=== PATIENT | female | born 1970 | race Caucasian/White ===

== ENCOUNTER → 2020-05-23 | Outpatient (CLI) | payer OTHER ==
[2020-05-23 10:59] LABS: BILIRUBIN,URINE NEGATIVE (NEG); CLARITY,URINE CLEAR; COLOR,URINE YELLOW; NITRITE,URINE NEGATIVE (NEG); PH,URINE 6.5 (<5.0-8.0); PROTEIN,URINE NEGATIVE (NEG-TRACE); UROBILINOGEN,URINE 0.2 mg/dL (0.2 mg/dL)
[2020-05-23 11:03] LABS: BASO % 1 % (0-3); EOS # 0.1 x10^3/uL (0.0-0.7); EOS % 1 % (0-3); HEMATOCRIT 42.2 % (36.0-47.0); HEMOGLOBIN 14.5 g/dL (12.0-15.5); LYMPH # 2.1 x10^3/uL (1.0-4.8); LYMPH % 39 % (24-48); MEAN CORPUSCULAR HEMOGLOBIN 29 pg (25-35); MEAN CORPUSCULAR HGB CONC 34 g/dL (31-37); MEAN CORPUSCULAR VOLUME 85 fL (79-100); MONO # 0.3 x10^3/uL (0.0-1.1); MONO % 6 % (0-9); NEUT # 2.9 x10^3/uL (1.8-7.7); NEUT % 54 % (31-73); PLATELET COUNT 226 x10^3/uL (140-400); RED BLOOD COUNT 4.96 x10^6/uL (3.50-5.40); RED CELL DISTRIBUTION WIDTH 12.9 % (11.5-14.5); WHITE BLOOD COUNT 5.5 x10^3/uL (4.0-11.0)
[2020-05-23 11:26] LABS: ALBUMIN 4.1 g/dL (3.4-5.0); ALBUMIN/GLOBULIN RATIO 1.2 (1.0-1.7); CALCIUM 8.5 mg/dL (8.5-10.1); CREATININE 0.7 mg/dL (0.6-1.0); GFR 88.9; POTASSIUM 3.8 mmol/L (3.5-5.1); TOTAL BILIRUBIN 0.5 mg/dL (0.2-1.0); TOTAL PROTEIN 7.4 g/dL (6.4-8.2)
[2020-05-23 11:27] LABS: CHOLESTEROL/HDL RATIO 3.8
[2020-05-23 11:34] LABS: BACTERIA,URINE FEW /HPF (0-FEW); RBC,URINE 0 /HPF (0-2); SQUAMOUS EPITHELIAL CELL,UR FEW /LPF; WBC,URINE 0 /HPF (0-4)
[2020-05-23 11:35] LABS: FREE T4 0.81 ng/dL (0.76-1.46); THYROID STIM HORMONE (TSH) 6.551 uIU/mL (0.358-3.74)
[2020-05-24 00:09] LABS: FSH 69.1 mIU/mL (.); PROGESTERONE <0.1 ng/mL (.); T3 TOTAL 97 ng/dL (71-180); TESTOSTERONE TOTAL 5 ng/dL (8-48)
== END | disposition home or self-care (01) ==
LOC: LAB 10:13
PROVIDERS: ATTEND Family Medicine
DX: Z00.00 Encounter for general adult medical examination without abnormal findings (principal); R53.83 Other fatigue; E34.9 Endocrine disorder, unspecified; E03.9 Hypothyroidism, unspecified
CPT/HCPCS: 36415; 80053; 80061; 81001; 82306; 82607; 82670; 83001; 84144; 84403; 84439; 84443; 84480; 85025; 86803

== ENCOUNTER → 2020-06-07 | Outpatient (CLI) | payer OTHER ==
--- NOTE | 2020-06-07 16:50 | RAD ---
Ultrasound of the neck 06/07/2020 CLINICAL HISTORY: Bilateral neck pressure. TECHNIQUE: A real-time ultrasound examination of the neck in the area where the patient feels pressure was performed. Multiple images were obtained. FINDINGS: No abnormal soft tissue mass is seen. Normal appearing cervical lymph nodes are seen within the neck, right greater than left which measure 0.8 to 1.5 cm in greatest diameter. No cervical lymphadenopathy is seen. No abnormal fluid collection is noted. IMPRESSION: Normal-appearing lymph nodes are seen within the visualized neck. No abnormal soft tissue mass is seen. Electronically signed by: Delbert Verma MD (06/07/2020 4:47 PM) [id number]
--- NOTE | 2020-06-07 17:00 | RAD ---
Thyroid ultrasound 06/07/2020 CLINICAL HISTORY: Hypothyroidism. TECHNIQUE: A real-time ultrasound examination of the thyroid gland was performed. Multiple images were obtained. FINDINGS: The thyroid gland is mildly enlarged, left greater than right. The right lobe of the thyroid gland measures 3.5 x 1.3 x 1.3 cm in size. The left lobe of thyroid gland measures 4.2 x 2.1 x 1.9 cm in size. The isthmus measures 2 mm in thickness. Multiple rounded/oval-shaped isoechoic solid nodules are seen scattered throughout both lobes of the thyroid gland. They measure 3 mm to 2.8 cm in greatest diameter. The largest nodule is within the mid/inferior aspect of the left lobe of thyroid gland. The second largest nodule involves the medial aspect of the right lobe of the thyroid gland extending into the isthmus. It measures 1.1 cm in size. The two larger nodules are TI-RADS level 3: mildly suspicious. Due to the large size of the nodule within the left lobe of thyroid gland, ultrasound-guided FNA is recommended for further evaluation. IMPRESSION: Findings consistent with a multinodular goiter. A 2.8 cm solid nodule is seen within the left lobe of the thyroid gland. Further evaluation with ultrasound-guided FNA is recommended. Electronically signed by: Delbert Verma MD (06/07/2020 4:57 PM) [id number]
== END ==
LOC: US 12:45
PROVIDERS: ATTEND Nurse Practitioner Family
DX: E04.1 Nontoxic single thyroid nodule (principal); R59.0 Localized enlarged lymph nodes
CPT/HCPCS: 76536

== ENCOUNTER → 2020-07-08 | Outpatient (CLI) | payer OTHER ==
--- NOTE | 2020-07-08 15:23 | RAD ---
EXAM: ULTRASOUND-GUIDED THYROID FINE-NEEDLE ASPIRATION AND CORE NEEDLE BIOPSY. HISTORY: Dominant left Thyroid nodule. Ultrasound-guided biopsy is requested. FINDINGS: The procedure along with its risks and benefits were explained to the patient. They agreed to proceed. A timeout procedure was performed. Sonographic images of the thyroid gland were obtained. The solid target nodule in the mid left thyroid lobe was adequately visualized for biopsy. The overlying skin was sterilely prepped and infiltrated with 1% lidocaine for local anesthesia. Under ultrasound guidance, 4 aspirates were obtained using 25-gauge needles. These were hand delivered to pathology who determined them adequate for diagnosis. A single core needle biopsy sample was also obtained of the nodule using an 18-gauge Temno needle. This sample was placed in formalin and given to the electroencephalograph technologist. A sterile dressing was placed. There were no immediate complications. IMPRESSION: 1. Successful ultrasound-guided fine-needle aspiration and core biopsy of the dominant left thyroid nodule. Electronically signed by: Megan Hancock MD (07/08/2020 3:20 PM) [id number]
--- NOTE | 2020-07-09 13:08 | PATHOLOGY ---
Note [facility] Accession Number: [id number] TESTS RESULT FLAG UNITS REF RANGE LAB Clinician Provided Cytology Information No. of containers..01 Other (Miscellaneous) Source: LT THYROID DIAGNOSIS: LT THYROID INADEQUATE, INSUFFICIENT CELLS FOR STUDY. [place] CATEGORY I. UNSATISFACTORY. THIS INTERPRETATION INCLUDES EVALUATION OF A CELL BLOCK. Signed out by: Anthony Allen MD, Pathologist NPI- [id number] Performed by: Tim Travis, Chain Person ([facility]) Gross description: 01 30ML, RED, 1TP, 1CB /LCS 07/09/2020 0551 Local FLAG LEGEND: L-Low Normal,H-High Normal,LL-Alert Low,HH-Alert High <-Panic Low,>-Panic High,A-Abnormal,AA-Critical Abnormal Performed at: 01 [facility] [address] [place] [address] [address] [place] [address] Jose Segundo MD, [address] [address] Anthony Allen MD, Specimen Comment: A courtesy copy of this report has been sent to [phone], [phone] Specimen Comment: [id number] Specimen Comment: Report sent to DR MERINO,DR OKEEFE / DR LONGORIA Specimen Comment: A duplicate report has been generated due to demographic updates. Performed at: 01 [facility] [address], [place], [place] [id number] MD Jose Segundo MD Phone: [phone]
--- NOTE | 2020-07-10 15:07 | PATHOLOGY ---
[facility] Accession Number: [id number] . 01 Material submitted: . thyroid gland - LEFT THYROID NODULE 2.8CM CORE BX LEFT THYROID. Modifiers: left . 01 Clinical history: . LEFT THYROID NODULE . 02 Diagnosis: Thyroid tissue, left thyroid nodule core biopsy: - Thyroid follicular lesion. See comment. . (JPM:mml/katelynn; 07/10/2020) [facility] 07/10/2020 1355 Local . 02 Comment: Sections of the left thyroid nodule core biopsy reveal a segment of thyroid tissue, composed of thyroid follicles which vary mildly in size and focally contain colloid. The follicles are lined by thyroid follicular cells having regular rounded nuclei. There is recent hemorrhage within the stroma. There is no capsule present in the biopsy. The differential diagnosis includes adenomatous nodule and follicular neoplasm. There is no cytomorphological evidence of papillary carcinoma. Please correlate with fine needle aspiration specimen. . (JPM:mml/katelynn; 07/10/2020) . 02 Electronically signed: . Singh Baez MD, Pathologist NPI- [id number] . 01 Gross description: . The specimen is received in formalin, labeled "Abbieanless, Ileana, left thyroid" and consists of a delicate needle core of pink-ma tissue measuring 0.8 cm in length and 0.1 cm in diameter which is entirely submitted in A1. (SDY; 07/08/2020) SYU/SYU 07/08/2020 1641 Local . 02 Pathologist provided ICD-10: E04.1 . 02 CPT . 715768 Specimen Comment: A courtesy copy of this report has been sent to [phone] Specimen Comment: [id number] Specimen Comment: Report sent to ,DR OKEEFE / DR LONGORIA Performed at: [address] [facility] [address], [place], [place] [id number] MD Jose Segundo MD Phone: [phone] Performed at: 02 [facility] [address] [place], [place] [id number] MD Singh Baez MD Phone: [phone]
== END | disposition home or self-care (01) ==
LOC: US 08:36
PROVIDERS: ATTEND Nurse Practitioner Family
DX: E04.1 Nontoxic single thyroid nodule (principal)
CPT/HCPCS: 10005; 60300; 76942; 88173; 88305

== ENCOUNTER → 2020-08-02 | Outpatient (CLI) | payer OTHER ==
[2020-08-03 01:12] LABS: LUTEINIZING HORMONE 50.5 mIU/mL (.); TESTOSTERONE TOTAL <3 ng/dL (8-48)
== END ==
LOC: LAB 11:10
PROVIDERS: ATTEND Nurse Practitioner Family
DX: E34.9 Endocrine disorder, unspecified (principal)
CPT/HCPCS: 36415; 82306; 82607; 82626; 83001; 83002; 84403

== ENCOUNTER → 2020-08-02 | Outpatient (CLI) | payer OTHER ==
[2020-08-02 13:06] LABS: FREE T4 0.76 ng/dL (0.76-1.46); THYROID STIM HORMONE (TSH) 1.79 uIU/mL (0.358-3.74)
[2020-08-03 00:27] LABS: PROGESTERONE <0.1 ng/mL (.)
== END ==
LOC: LAB 11:04
PROVIDERS: ATTEND Otolaryngology Plastic Surgery within the Head & Neck
DX: E04.1 Nontoxic single thyroid nodule (principal)
CPT/HCPCS: 36415; 82533; 82672; 84144; 84439; 84443; 84481; 86141

== ENCOUNTER → 2020-10-14 | Outpatient (CLI) | payer OTHER ==
[2020-10-14 09:51] LABS: FREE T4 0.85 ng/dL (0.76-1.46); THYROID STIM HORMONE (TSH) 4.037 uIU/mL (0.358-3.74)
== END ==
LOC: LAB 08:37
PROVIDERS: ATTEND Otolaryngology Plastic Surgery within the Head & Neck
DX: E03.9 Hypothyroidism, unspecified (principal)
CPT/HCPCS: 36415; 84439; 84443; 84481

== ENCOUNTER → 2020-10-14 | Outpatient (CLI) | payer OTHER ==
[2020-10-14 09:34] LABS: BASO % 1 % (0-3); EOS % 1 % (0-3); HEMATOCRIT 44.9 % (36.0-47.0); HEMOGLOBIN 15.5 g/dL (12.0-15.5); LYMPH # 1.9 x10^3/uL (1.0-4.8); LYMPH % 33 % (24-48); MEAN CORPUSCULAR HEMOGLOBIN 29 pg (25-35); MEAN CORPUSCULAR HGB CONC 34 g/dL (31-37); MEAN CORPUSCULAR VOLUME 85 fL (79-100); MONO # 0.4 x10^3/uL (0.0-1.1); MONO % 7 % (0-9); NEUT # 3.5 x10^3/uL (1.8-7.7); NEUT % 59 % (31-73); PLATELET COUNT 248 x10^3/uL (140-400); RED CELL DISTRIBUTION WIDTH 13.4 % (11.5-14.5); WHITE BLOOD COUNT 5.9 x10^3/uL (4.0-11.0)
[2020-10-14 09:48] LABS: ALBUMIN 4.5 g/dL (3.4-5.0); ALBUMIN/GLOBULIN RATIO 1.6 (1.0-1.7); C-REACTIVE PROTEIN 0.8 mg/L (0-3.3); CALCIUM 9.1 mg/dL (8.5-10.1); CREATININE 0.8 mg/dL (0.6-1.0); GFR 76.2; POTASSIUM 4.4 mmol/L (3.5-5.1); TOTAL BILIRUBIN 0.9 mg/dL (0.2-1.0); TOTAL PROTEIN 7.3 g/dL (6.4-8.2)
[2020-10-14 09:54] LABS: CHOLESTEROL/HDL RATIO 4.6
[2020-10-14 19:09] LABS: FSH 32.2 mIU/mL (.)
[2020-10-14 21:09] LABS: ESTRADIOL LEVEL 82.9 pg/mL (.); PROGESTERONE 0.1 ng/mL (.)
[2020-10-15 01:17] LABS: HEMOGLOBIN A1C 4.8 % (4.8-5.6)
[2020-10-17 08:14] LABS: TESTOSTERONE FREE 5.83 ng/dL (0.10-0.85)
== END ==
LOC: LAB 08:30
PROVIDERS: ATTEND Nurse Practitioner
DX: N95.9 Unspecified menopausal and perimenopausal disorder (principal); R53.83 Other fatigue; R68.82 Decreased libido
CPT/HCPCS: 36415; 80053; 80061; 82306; 82533; 82607; 82626; 82670; 82672; 83001; 83036; 84144; 84402; 84403; 84482; 85025; 86140